=== PATIENT | male | born 1975 | race Caucasian/White ===

== ENCOUNTER 2019-02-09 07:30 | Emergency (ER) | payer BC ==
[2019-02-09 07:45] VITALS: BP 118/85
--- NOTE | 2019-02-09 07:47 | UC ---
General HPI - HPI Summary HPI Summary: RN notes - reviewed. All PCN Pleasant 43 yo gentleman c/o last several days increasing ear discomfort, and decreased hearing. Worse in am. Some allergy sinus issues last couple weeks. No fever / chills. No cough. No rash. No GI issues. No vision c/o's. Works in construction, uses ear plugs frequently. Denies recent dental work or dental injury. - History of Current Complaint Chief Complaint: UCEar Stated Complaint: LEFT EAR CONCERN Hx Obtained From: Patient Pain Intensity: 5 - Allergy/Home Medications Allergies/Adverse Reactions: Allergies Allergy/AdvReac Type Severity Reaction Status Date / Time Penicillins Allergy Nausea And Verified 02/09/19 07:45 Vomiting PMH/Surg Hx/FS Hx/Imm Hx Previously Healthy: Yes - Surgical History Surgical History: Yes Surgery Procedure, Year, and Place: ACL, Appy - Family History Known Family History: Positive: Non-Contributory - Social History Alcohol Use: Rare Substance Use Type: None Smoking Status (MU): Never Smoked Tobacco Review of Systems All Other Systems Reviewed And Are Negative: Yes Constitutional: Positive: Negative Skin: Positive: Other - see hpi Eyes: Positive: Other - see hpi ENT: Positive: Other - see hpi Respiratory: Positive: Negative Cardiovascular: Positive: Negative Gastrointestinal: Positive: Negative Genitourinary: Positive: Negative Motor: Positive: Negative Neurovascular: Positive: Negative Musculoskeletal: Positive: Negative Neurological: Positive: Negative, Headache Psychological: Positive: Negative Is Patient Immunocompromised?: No Physical Exam Triage Information Reviewed: Yes Appearance: Well-Appearing, Well-Nourished Vital Signs: Initial Vital Signs Temp 98.4 F 02/09/19 07:41 Pulse 71 02/09/19 07:41 Resp 16 02/09/19 07:41 BP 118/85 02/09/19 07:41 Pulse Ox 98 02/09/19 07:41 Vital Signs Reviewed: Yes Eye Exam: Normal ENT Exam: Other ENT: Positive: Other - L cerumen impaction. TM as visible cheng. R eac + cerumen not impacted. Some chronic trauma to TM, but intact. C/w ear plug use s/p irrigation by RN - TM dull, dark cheng, intact Neck exam: Normal Neck: Positive: Supple Respiratory Exam: Normal Respiratory: Positive: Chest non-tender, Lungs clear, Normal breath sounds, No respiratory distress, No accessory muscle use Cardiovascular Exam: Normal Abdominal Exam: Normal Abdomen Description: Positive: Nontender Musculoskeletal Exam: Normal - gait steady, moves x 4 ext's Neurological Exam: Normal - grossly nonfocal. See hpi Psychological Exam: Normal - conversing easily and appropriately Course/Dx - Course Course Of Treatment: L EAC flushed by RN. See Obj. Suspect allergy related serous otitis. However, consider additional TMJ. Some eac / barotrauma noted to R, but not as much in L. Suggest f/u dentist for check next week. Questions as posed answered to the best of my ability. Declines work note. - Diagnoses Provider Diagnosis: Serous otitis media, Cerumen impaction, TMJ arthropathy Discharge - Sign-Out/Discharge Documenting (check all that apply): Patient Departure All imaging exams completed and their final reports reviewed: No Studies - Discharge Plan Condition: Stable Disposition: HOME Prescriptions: Fluticasone NASAL SPRAY 50MCG* [Flonase NASAL SPRAY 50MCG*] 2 spray BOTH NARES DAILY #1 btl Ibuprofen TAB* [Motrin TAB* 600 MG] 600 mg PO Q8H PRN #30 tab PRN Reason: Pain Patient Education Materials: Antihistamine (By mouth), Cerumen Impaction (ED), Temporomandibular Disorder (ED), Serous Otitis Media (ED) Referrals: Louie Cuoch MD [Primary Care Provider] - Additional Instructions: Follow up with dentist - next week if possible. Follow up with your primary care physician, per routine. Please seek medical attention for worse or new problems. Hydrate. - Billing Disposition and Condition Condition: STABLE Disposition: Home
== END 2019-02-09 09:19 | disposition home or self-care (01) ==
LOC: UCCORT 07:30
DX: H65.92 Unspecified nonsuppurative otitis media, left ear (principal); H61.22 Impacted cerumen, left ear; M12.88 Other specific arthropathies, not elsewhere classified, other specified site; Z88.0 Allergy status to penicillin
CPT/HCPCS: 99203; G0463